=== PATIENT | male | born 1955 | race Caucasian/White ===

== ENCOUNTER 2020-10-01 07:33 | Outpatient (REF) | payer MEDICARE, MEDICAID, SELFPAY | END 2020-10-01 07:34 | disposition home or self-care (01) | LOC: HO.LAB 07:33 | PROVIDERS: Visit Provider Internal Medicine | DX: Z20.828 Contact with and (suspected) exposure to other viral communicable diseases (principal) | CPT/HCPCS: C9803; U0003 ==

== ENCOUNTER 2021-05-23 07:31 | Outpatient (REF) | payer MEDICARE, MEDICAID, SELFPAY ==
[2021-05-23 08:20] LABS: MANUAL DIFF FLAG NO
[2021-05-23 08:26] LABS: Basophils Percent Auto 0.7 % (0-2); Eosinophils Absolute Auto 0.2 X10*3/uL (0.0-0.4); Hemoglobin 13.3 g/dl (14.0-18.0); Imm Gran Abs Auto 0.02 X10*3/uL (0.00-0.03); Imm Gran Pct Auto 0.3 % (0.0-0.4); Lymphocytes Absolute Auto 1.2 X10*3/uL (1.2-4.9); Lymphocytes Percent Auto 19.2 % (20-40); Mean Corpuscular HGB Conc 34.1 g/dl (31.0-36.0); Mean Corpuscular Hemoglobin 31.2 pg (27.0-33.0); Mean Corpuscular Volume 91.5 fL (80-98); Mean Platelet Volume 11.9 fL (9.4-12.4); Monocytes Absolute Auto 0.6 X10*3/uL (0.1-1.2); Monocytes Percent Auto 9.3 % (2-11); Neutrophils Percent Auto 66.5 % (45-73); Platelet Count 149 X10*3/uL (160-400); Red Blood Count 4.26 X10*6/uL (4.60-5.80); Red Cell Distribution Width 13.2 % (11.0-16.0)
[2021-05-23 09:15] LABS: TSH reflex Free T4 2.41 uIU/mL (0.32-4.0)
[2021-05-23 09:46] LABS: Alanine Aminotransferase 14 U/L (0-40); Albumin Level 4.2 g/dL (3.5-5.0); Alkaline Phosphatase 99 U/L (39-117); Anion Gap 13 (12-20); Aspartate Amino Transferase 19 U/L (5-37); Bilirubin Total 0.6 mg/dL (0.0-1.0); Blood Urea Nitrogen 30 mg/dL (9-16); Calcium 8.9 mg/dL (8.4-10.2); Carbon Dioxide 19 mmol/L (22-29); Chloride 112 mmol/L (96-108); Estimated Glomerular Filt Rate 39; Glucose Random 102 mg/dL (60-115); Magnesium 1.2 mg/dL (1.6-2.6); Potassium 4.4 mmol/L (3.3-5.1); Sodium 140 mmol/L (135-145); Total Protein 6.9 g/dL (6.5-8.0)
[2021-05-25 08:38] LABS: Folate 6.6 ng/mL (> or = 4.0); Vitamin B12 280 pg/mL (200-900)
== END 2021-05-23 07:32 | disposition home or self-care (01) ==
LOC: HO.LAB 07:31
PROVIDERS: PCP Internal Medicine; Visit Provider Internal Medicine
DX: R20.2 Paresthesia of skin (principal)
CPT/HCPCS: 36415; 80053; 82607; 82746; 83735; 84443; 85025

== ENCOUNTER 2023-08-23 05:04 | Emergency (ER) | payer MEDICARE, MEDICAID, SELFPAY ==
--- NOTE | ~2023-08-23 | XR_ITS ---
EXAMINATION: XR FOOT, RIGHT CLINICAL INFORMATION: Fall, pain. COMPARISON: None available. TECHNIQUE: AP, lateral, and oblique views of the right foot. FINDINGS: The bones and soft tissues are normal. No fracture. Alignment is anatomic. Joint spaces are maintained. There is a small calcaneal heel and retrocalcaneal spur. XR/XR foot RT min 3V IMPRESSION: Small calcaneal heel and retrocalcaneal spurs. No visible acute fracture or dislocation seen.
[2023-08-23 05:07] VITALS: BP 213/89; PULSE 89; RESP 18; TEMP 36.5; O2SAT 97; BMI 25.8
[2023-08-23 05:26] VITALS: BP 210/86; PULSE 53; RESP 12
--- NOTE | 2023-08-23 05:33 | ECG_ITS ---
Test Reason : HIGH BP Blood Pressure : / mmHG Vent. Rate : 049 BPM Atrial Rate : 049 BPM P-R Int : 204 ms QRS Dur : 106 ms QT Int : 456 ms P-R-T Axes : 031 022 -12 degrees QTc Int : 411 ms Sinus bradycardia T wave abnormality, consider inferior ischemia Abnormal ECG When compared with ECG of 13-NOV-2015 16:51, Vent. rate has decreased BY 67 BPM Questionable change in QRS duration Criteria for Posterior infarct are no longer Present Referred By: Generic ED Physician Electronically Signed By:MADELAINE WILKINS MD
[2023-08-23 06:00] VITALS: BP 194/77; PULSE 49; RESP 15
[2023-08-23 06:30] VITALS: BP 198/77; PULSE 54; RESP 13
--- NOTE | 2023-08-23 06:38 | ED_ITS ---
HPI - General Adult General Chief complaint: Extremity Injury, Lower Stated complaint: R foot pain Time Seen by Provider: 08/23/23 06:36 Source: patient Mode of arrival: ambulatory Limitations: no limitations History of Present Illness HPI narrative: 68 year old male with a history of CKD, HTN, GERD, CAD, and MDD presents to the ED with complaints of right foot pain. Patient reports onset of pain was Tuesday and localized to the dorsal aspect of the foot, it has progressively become more painful and is now localized to the base of the right great toe. Patient denies any inciting event but assumes he must have hurt it getting out of his truck. Pain is a 5/10 at rest and an 8/10 with walking. He reports the pain waking him up at night and endorses a limp with ambulation. Patient has trialled tylenol without relief and has been wrapping his foot with an ruby bandage for additional support. Patient denies fever, headache, changes in vision. Onset (ago): week(s) (1) Location: right and lower extremity Severity: mild Severity scale (1-10): 3 Quality: aching and dull Pain Consistency: constant Relieving factors: none Exacerbating factors: movement Associated symptoms: denies other symptoms Treatments prior to arrival: other (tylenol and compression dressing with an RUBY wrap) Related Data Home Medications Medication Instructions Recorded Confirmed aspirin 81 mg tablet,delayed 81 mg PO DAILY 09/11/20 06/17/22 release (Adult Low Dose Aspirin) atorvastatin 80 mg tablet 80 mg PO DAILY 09/11/20 06/17/22 ketorolac 0.5 % eye drops drp ophthalmic (eye) 09/11/20 06/17/22 metoprolol succinate 25 mg 25 mg PO DAILY 09/11/20 06/17/22 tablet,extended release 24 hr nifedipine 60 mg tablet,extended 60 mg PO DAILY 09/11/20 06/17/22 release doxycycline hyclate 100 mg capsule 100 mg PO BID 05/20/21 06/17/22 lisinopril 20 mg tablet 20 mg PO BID 09/11/21 06/17/22 Previous Rx's Medication Instructions Recorded betamethasone dipropionate 0.05 % 1 applic topical DAILY 14 days #45 09/11/20 topical cream grams pantoprazole 40 mg tablet,delayed 40 mg PO DAILY #90 tabs 01/22/21 release magnesium oxide,aspartate,citr 400 mg PO BID 5 days #10 caps 05/28/21 meclizine 25 mg tablet 25 mg PO DAILY PRN motion sickness 06/24/22 #14 tabs prednisone 20 mg tablet 20 mg PO DAILY 5 days #5 tabs 08/23/23 Allergies Allergy/AdvReac Type Severity Reaction Status Date / Time ciprofloxacin [CIPROFLOXACIN] Allergy Unknown SEVERE Verified 06/24/22 11:24 ABDOMINAL CRAMPING, dizziness Review of Systems Constitutional: Constitutional: Denies fever(s) and Denies headache(s) Eyes: Eyes: Denies change in vision ENT: Denies headache(s) Cardiovascular: Cardiovascular: Denies chest pain, Denies lightheadedness and Denies dyspnea Respiratory: Respiratory: Denies dyspnea Gastrointestinal: Gastrointestinal: Reports no additional gastrointestinal complaints, Denies abdominal pain, Denies melena, Denies hematochezia, Denies change in bowel habits and Denies change in stool character Genitourinary: Genitourinary: Reports no additional male genitourinary complaints, Denies hematuria, Denies oliguria, Denies difficulty urinating, Denies dysuria, Denies urinary frequency, Denies urinary hesitancy, Denies urinary incontinence and Denies urinary urgency Musculoskeletal: Musculoskeletal: Denies deformity, Reports arthralgias and Reports joint swelling Neurologic: Denies headache(s) Psychiatric: Psychiatric: Reports no additional psychiatric complaints Endocrine: Endocrine: Reports no additional endocrine complaints Hematologic/Lymphatic: Hematologic/Lymphatic: Reports no additional hematologic/lymphatic complaints Allergic/Immunologic: Allergic/Immunologic: Reports no additional allergic/im munologic complaints [facility] Past Medical History Attestation statement: The following information was validated with the patient. Source: old records reviewed and nursing notes reviewed Medical History Recurrent major depression Retroperitoneal bleed Erectile dysfunction Lumbar radiculopathy Obstructive sleep apnea GERD (gastroesophageal reflux disease) Anemia Congestive heart failure Carotid artery stenosis Left renal artery stenosis Peripheral arterial disease Impaired glucose tolerance Hypercholesterolemia Coronary artery disease Surgical History H/O elbow surgery History of quadruple bypass (~2015) Family History Family History Mother No problems noted. Father Hypertension Social History Social History Housing: House Alcohol intake: current Alcohol intake frequency: a few times a week Alcohol type: beer Patient Tobacco Use Status: Former Tobacco user Smoked in Last 30 Days: No e-Cigarette/Vaping Use: Never Used Second Hand Smoke Exposure: Yes Use of substances other than those prescribed or required for medical reasons: No Advance Directives: No Advance Directives Information Provided: Yes service: No Current occupational status: retired Cognitive needs: No Hearing needs: No Vision needs: No Physical Exam ED Vital Signs: Vital Signs - 24 hr 08/23/23 05:07 08/23/23 05:26 08/23/23 06:00 Temperature 97.7 F Pulse Rate 89 53 49 L Respiratory Rate 18 12 15 Blood Pressure 213/89 H 210/86 H 194/77 H Pulse Oximetry 97 Oxygen Delivery Method Room Air 08/23/23 06:30 08/23/23 07:12 Temperature 97.8 F Pulse Rate 54 52 Respiratory Rate 13 12 Blood Pressure 198/77 H 197/78 H Pulse Oximetry 97 Oxygen Delivery Method Room Air BMI result Body Mass Index 25.8 Const General: cooperative, healthy appearing and no acute distress Nutritional Appearance: well nourished Orientation/consciousness: patient oriented x3 Limitations: no limitations [facility] Head: Yes normal to inspection and Yes atraumatic Ears: hearing grossly normal bilaterally and external ears normal General nose exam: Normal external nose present, no nasal discharge noted and no epistaxis Face and sinus: Yes normal facial exam, No abrasion and No laceration Mouth: Normal oral and palatal mucosa present, no drooling and no muffled voice Eyes General: appearance normal, both eyes and all related structures Periorbital: periorbital findings normal Eyelids: Yes eyelids normal Conjunctivae: conjunctivae normal Pupils: Equal, round and reactive pupils present EOM: EOMs intact bilaterally Neck Neck: Yes normal visual inspection, Yes full ROM and Yes no lymphadenopathy Chest Chest palpation & inspection: normal inspection of the chest Resp Effort & Inspection: normal respiratory effort and able to speak in complete sentences GI Inspection: Yes normal to inspection Skin Other: Localized erythema, tenderness and mild swelling at the base of the right great toe. Mild rash to the dorsal aspect of the right foot that patient associated with use of the ruby bandage. No deformities, bruising or abrasions. Neuro General: patient oriented x3 and moves all extremities Cranial nerves: Yes Equal, round and reactive pupils present Cognition (Neuro): normal cognition Motor exam (neuro): 5/5 motor strength present throughout Sensory Exam: Normal double simultaneous stimulation for sensation Coordination: [id number] test normal Extrem General: Yes normal to inspection, Yes full ROM and Yes capillary refill normal Psych Appearance: grossly normal Mental Status: mental status grossly normal Affect: normal affect Attitude: cooperative Thought process: Normal thought process present Thought content: Normal thought content present Insight: Good insight present (Psych) Medications Administered Discontinued Medications Generic Name Dose Route Start Last Admin Trade Name Freq PRN Reason Stop Dose Admin Ketorolac Tromethamine 15 mg 08/23/23 06:58 08/23/23 07:15 Ketorolac Tromethamine 15 Mg/Ml Vial IM 08/23/23 06:59 15 mg ONCE ONE Administration Metoprolol Succinate 25 mg 08/23/23 05:51 08/23/23 06:47 Metoprolol Succinate Er 25 Mg Tab.Er.24h PO 08/23/23 05:52 Not Given ONCE ONE Protocol Medical Decision Making Medical Decision Making MDM Narrative: Patient is a 68 year old assigned male at with a history of CKD, CAD, HTN, GERD, and MDD presenting to the emergency department today with right great toe pain. Patient's physical exam was as noted in the physical exam portion of this note. Patient's right foot x-ray showed no acute process. I explained my physical exam findings as well as all test results to the patient. I answered all questions asked by the patient. Patient's clinical presentation is most consistent with gout vs ligament injury. Patient declined a post-op shoe or walking boot. I stressed the importance of the patient taking his medication as prescribed. I stressed the importance of the patient following up with his primary care provider and an orthopedic provider. I stressed the importance of the patient returning to the emergency department immediately if his symptoms were to worsen or if he were to develop any dizziness, shortness of breath, difficulty breathing, chest pain, blurry vision, loss of vision, nausea, vomiting, abdominal pain, fever, chills, back pain, or any other complaints. Patient verbalized agreement and understanding with this treatment plan and discharge. Differential Diagnosis Differential Diagnoses: The differential diagnosis associated with the presentation includes Gout Right foot injury Right foot strain Right foot sprain Independent Interpretation I performed an independent interpretation of an: Plain X-Ray Interpretation: My interpretation is in agreement with the radiologist's impression of this imaging study. EXAMINATION: XR FOOT, RIGHT CLINICAL INFORMATION: Fall, pain. COMPARISON: None available. TECHNIQUE: AP, lateral, and oblique views of the right foot. FINDINGS: The bones and soft tissues are normal. No fracture. Alignment is anatomic. Joint spaces are maintained. There is a small calcaneal heel and retrocalcaneal spur. XR/XR foot RT min 3V IMPRESSION: Small calcaneal heel and retrocalcaneal spurs. No visible acute fracture or dislocation seen. Dictated By: Aravidn Vizcarra MD Signed By: Electronically signed by Aravind Vizcarra MD 08/23/23 0833 Radiology Impression Discussion of test interpretation with radiology: I have reviewed the radiologist's reading. Discharge Plan Discharge Clinical Impression: Gout, Acute foot pain Patient Disposition: Home, Self-Care Instructions: Low Purine Diet (ED), Gout (ED), Arthralgia (ED) Additional Instructions: Follow up with your primary care provider and an orthopedic provider. Return to the emergency department immediately if your symptoms worsen or if you develop any dizziness, shortness of breath, difficulty breathing, chest pain, blurry vision, loss of vision, nausea, vomiting, abdominal pain, fever, chills, back pain, or any other complaints. Prescriptions: New prednisone 20 mg tablet 20 mg PO DAILY 5 Days Qty: 5 0RF No Action pantoprazole 40 mg tablet,delayed release (DR/EC) 40 mg PO DAILY Qty: 90 0RF magnesium oxide,aspartate,citr 400 mg magnesium capsule 400 mg PO BID 5 Days Qty: 10 1RF lisinopril 20 mg tablet 20 mg PO BID metoprolol succinate 25 mg tablet extended release 24 hr 25 mg PO DAILY nifedipine 60 mg tablet extended release 60 mg PO DAILY atorvastatin 80 mg tablet 80 mg PO DAILY ketorolac 0.5 % drops ophthalmic (eye) aspirin [Adult Low Dose Aspirin] 81 mg tablet,delayed release (DR/EC) 81 mg PO DAILY betamethasone dipropionate 0.05 % cream 1 applic topical DAILY 14 Days Qty: 45 0RF doxycycline hyclate 100 mg capsule 100 mg PO BID meclizine 25 mg tablet 25 mg PO DAILY PRN (Reason: motion sickness) Qty: 14 0RF Referrals: [facility] [place] [facility] [Provider Group] (Call to establish and follow up with an orthopedic provider. ) Riky Tate MD [Primary Care Provider] - Interventions: ED Discharge Assessment Last Done: 08/23/23 08:15 Discharge Date/Time: 08/23/23 08:15 Print Language: Croatian
--- NOTE | 2023-08-23 06:46 | PC.NURSE ---
metoprolol held per Dr. Stone, Pts heart rate is 54, pt states This is my normal heart rate, I self adjust my meds.
[2023-08-23 07:12] VITALS: BP 197/78; PULSE 52; RESP 12; TEMP 36.6; O2SAT 97
[2023-08-23] MEDS: Ketorolac Tromethamine 15 MG/ML VIAL IM (07:15)
== END 2023-08-23 08:15 | disposition home or self-care (01) ==
PROVIDERS: Emergency Provider Emergency Medicine; PCP Internal Medicine
DX: M10.9 Gout, unspecified (principal); M79.671 Pain in right foot; I13.0 Hypertensive heart and chronic kidney disease with heart failure and stage 1 through stage 4 chronic kidney disease, or unspecified chronic kidney disease; N18.4 Chronic kidney disease, stage 4 (severe); I50.9 Heart failure, unspecified; E78.00 Pure hypercholesterolemia, unspecified; Z79.82 Long term (current) use of aspirin; Z79.899 Other long term (current) drug therapy; Z87.891 Personal history of nicotine dependence
CPT/HCPCS: 73630; 93005; 96372; 99284; 99285; J1885